=== PATIENT | male | born 1965 | race Caucasian/White ===

== ENCOUNTER 2022-01-15 11:32 | Emergency (ER) | payer OTHER ==
[~2022-01-15] VITALS: Ht 193 cm; Wt 168.1 kg
[2022-01-15 11:44] VITALS: BP 129/65
== END 2022-01-15 13:00 | disposition left against medical advice (07) ==
LOC: ER 11:32 → EDBD 11:32 → ER 13:00
DX: S16.1XXA Strain of muscle, fascia and tendon at neck level, initial encounter (principal); S46.912A Strain of unspecified muscle, fascia and tendon at shoulder and upper arm level, left arm, initial encounter; Z88.2 Allergy status to sulfonamides; Z88.1 Allergy status to other antibiotic agents; V43.52XA Car driver injured in collision with other type car in traffic accident, initial encounter; Y93.89 Activity, other specified; Y92.488 Other paved roadways as the place of occurrence of the external cause; Y99.8 Other external cause status